=== PATIENT | male | born 1995 | race Caucasian/White ===

== ENCOUNTER 2024-01-21 08:00 | Outpatient (CLI) | payer BC, SELFPAY ==
--- NOTE | ~2024-01-21 | US_ITS ---
Right upper quadrant ULTRASOUND Ordering provider: Anish Velazquez, History: . ELEVATED LFTs . Comparison: None. FINDINGS: LIVER: Hepatomegaly.. Fat infiltration with focal fat sparing areas. No focal hepatic lesions or rose hepatic fluid collections are identified. Normal flow of the portal vein. GALLBLADDER: Unremarkable. No evidence for stones, sludge, gallbladder wall thickening or pericholecy stic fluid collections. A negative sonographic Garcia's sign was noted. BILIARY DUCTS: No evidence for intra or extrahepatic biliary dilation. Common bile duct measures 3.4 mm in diameter which is within normal limits. PANCREAS: Normal echotexture and size. IMPRESSION: Hepatomegaly with fat infiltration and focal fat sparing areas. Otherwise, Unremarkable Right upper q [facility] ultrasound Reviewed, dictated and finalized at location A. IMPRESSION: Hepatomegaly with fat infiltration and focal fat sparing areas. Otherwise, Unre markable Right upper quadrant ultrasound
== END 2024-01-21 08:01 | disposition home or self-care (01) ==
LOC: CHSIMG 08:03
PROVIDERS: PCP Family Medicine; Visit Provider Family Medicine
DX: R79.89 Other specified abnormal findings of blood chemistry (principal); K76.0 Fatty (change of) liver, not elsewhere classified
CPT/HCPCS: 76705